=== PATIENT | female | born 1985 | race Caucasian/White ===

== ENCOUNTER → 2018-10-04 13:52 | Outpatient (CLI) | payer BC, SELFPAY ==
--- NOTE | 2018-10-04 14:00 | XR_ITS ---
XR shoulder RT min 2V HISTORY: ITS.REASON: RT SHOULDER PAIN,CERVICALGIA ORDERING PHYSICIAN: Angie Myers PATIENT AGE: 32 years Comparison: None FINDINGS: No fracture or dislocation. No lytic or blastic change. There is normal mineralization. The joint spaces are well-preserved. No significant degenerative/arthritic changes. No erosive changes evident. IMPRESSION: Negative, no acute finding
--- NOTE | 2018-10-04 14:00 | XR_ITS ---
EXAM: XR cervical spine 5V HISTORY: ITS.REASON: RT SHOULDER PAIN,CERVICALGIA ORDERING PHYSICIAN: Angie Myers PATIENT AGE: 32 years COMPARISON: None FINDINGS: Normal alignment. No fracture or dislocation. No lytic or blastic change. No significant degenerative change. The disc spaces are preserved. Surgical clips are present in the right neck. No evidence of cervical rib. The foramina are widely patent IMPRESSION: Negative cervical spine
== END ==
PROVIDERS: PCP Nurse Practitioner Family; Visit Provider Nurse Practitioner Family
DX: M25.511 Pain in right shoulder (principal); M54.2 Cervicalgia
CPT/HCPCS: 72050; 73030

== ENCOUNTER → 2018-10-17 15:46 | Outpatient (CLI) | payer BC, SELFPAY ==
--- NOTE | 2018-10-17 15:51 | MR_ITS ---
MR shoulder RT wo con HISTORY: Anterior shoulder pain. Pain with lifting. Weakness and numbness in the right upper extremity ITS.REASON: RIGHT ANTERIOR SHOULDER PAIN ORDERING PHYSICIAN: Angie Myers PATIENT AGE: 33 years Comparison: 10/04/2018 TECHNIQUE: Standard multiplanar multiecho sequences are performed without contrast. FINDINGS: There is mild downsloping of the distal aspect of the acromion with minimal hypertrophic change along the undersurface of the acromion with subacromial stenosis of 4 mm with some mild impingement upon the supraspinatus tendon. There is increased T2 signal within the supraspinatus tendon consistent with tendinopathy/tendinosis. A tear is not identified. The infraspinatus, subscapularis, and teres minor tendons are unremarkable. No labral tear is evident. No fracture or dislocation. No significant effusion. 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 No evidence of rotator cuff tear or glenoid labral tear.
== END ==
PROVIDERS: PCP Nurse Practitioner Family; Visit Provider Nurse Practitioner Family
DX: R20.2 Paresthesia of skin (principal)
CPT/HCPCS: 73221

== ENCOUNTER → 2018-12-26 07:41 | Outpatient (CLI) | payer BC, SELFPAY ==
--- NOTE | 2018-12-26 07:43 | MR_ITS ---
MR cervical spine wo con, MR 3-d myelogram/MRCP Ordering Physician: Con Mixon Patient Age: 33 years: Female HISTORY: ITS.REASON: NECK PAIN Right arm pain numbness and tingling past year. Headache neck pain. Lymph nodes taken out of neck. With turning head from [id number] TECHNIQUE: Sagittal STIR, T1, T2, axial T1 and T2. On 1.5T Siemens wide bore MRI. 3-D MR myelogram image set obtained & performed on MRI workstation. Additional sagittal thin section T2 weighted dataset obtained from this latter acquisition as well (---76 CPT) COMPARISON July:2007 5 view C-spine series FINDINGS Generous volume underlying osseous cervical canal. Cranial cervical junction appears satisfactory. The cervical vertebral bodies are intact with with normal normal alignment. . The disc spaces are well-maintained at all levels with no significant disc protrusion or but no significant spurring. C5/6 and C6/7 with only some mild central disc prominence but no significant protrusion. Small benign hemangioma seen at the posterior left T1 vertebral body. . 8 at superior aspect size.High signal on T1 Reflect small hemangioma and Facets appear satisfactory. No foramen widely patent all levels. No remarkable encroachment. 3-D MRI myelogram shows normal appearance to the thecal sac. No epidural indentation. Fairly symmetric exiting nerve root sleeves. A would noteSlightly dilated Nerve roots or some small small perineural cyst seen at the bilaterally at the lower C-spine, and upper T-spine. Not of significance but noted At right lobe of thyroid is larger than the left. Right lobe upper normal in borderline enlargement and with suspect small 6 mm nodule at the superior margin of right lobe. Apices the lungs clear. The region of brachial plexus grossly unremarkable bilaterally IMPRESSION: 1. Cervical spine intact with no significant findings.. No disc herniation or significant protrusion.No spurring or spondylosis. Normal alignment . 2. Incidental observations: ... A.... Small small perineural cysts or mild dilatation dilated nerve root sleeves noted at lower C-spine & uppermost T-spine. Minimal and nonspecific most notable at the left at C6/7. Incidental observation not felt to be of of significance clinically but noted.. B.... Generous Right lobe of thyroid. Borderline to slightly enlarged versus left . Right lobe contains probable small 6 mm nodule upper pole right lobe. ... Questionable 7 mm nodule at the posterior left lobe thyroid . Consider thyroid ultrasound
== END ==
PROVIDERS: PCP Family Medicine; Visit Provider Orthopaedic Surgery Adult Reconstructive Orthopaedic Surgery
DX: M54.2 Cervicalgia (principal)
CPT/HCPCS: 72141; 76376

== ENCOUNTER → 2019-01-15 12:56 | Outpatient (CLI) | payer BC, SELFPAY ==
--- NOTE | 2019-01-15 13:30 | US_ITS ---
US thyroid HISTORY: Thyroid nodule ITS.REASON: THYROID ORDERING PHYSICIAN: Angie Myers APRN PATIENT AGE: 33 years No previous exams are available for comparison. The isthmus has an unremarkable appearance. The right lobe is 4.3 x 1.8 x 1.3 cm. There is a 1.2 x 0.6 x 0.7 cm hypoechoic nodule with lobular contour fairly well-circumscribed in the upper pole on the right. A 3 mm hypoechoic nodule is present in the lower pole. The left lobe is 4.2 x 1.6 x 1.2 cm. There is a 1.3 x 0.8 cm isoechoic nodule in the lower pole on the left which is well-circumscribed. IMPRESSION: Mildly enlarged thyroid gland with bilateral solid-appearing nodules as described above. Recommend 6 month follow-up to confirm stability
== END ==
PROVIDERS: PCP Nurse Practitioner Family; Visit Provider Nurse Practitioner Family
DX: E04.1 Nontoxic single thyroid nodule (principal)
CPT/HCPCS: 76536

== ENCOUNTER → 2020-12-09 09:56 | Outpatient (CLI) | payer BC, SELFPAY ==
--- NOTE | 2020-12-09 10:14 | XR_ITS ---
PROCEDURE: XR CHEST 2V CLINICAL HISTORY: CHEST PAIN COMPARISON: CR CXR CHEST(2 VIEWS-NOT PORTABLE) from 03/22/2013 FINDINGS: The cardiomediastinal silhouette and pulmonary vascularity are within normal limits. The lungs are clear without infiltrates, suspicious nodules, or pleural effusions. No acute bony abnormalities. IMPRESSION: No acute findings. Dictated by: Kike Hancock MD 12/09/2020 18:09 Kike Hancock MD in [place] 12/09/2020 18:09
== END ==
PROVIDERS: PCP Nurse Practitioner Family; Visit Provider Nurse Practitioner Family
DX: R07.9 Chest pain, unspecified (principal)
CPT/HCPCS: 71046

== ENCOUNTER → 2020-12-17 13:02 | Outpatient (CLI) | payer BC, SELFPAY ==
--- NOTE | 2020-12-17 | CA_ITS ---
APPROVED REPORT Exam: Exercise Treadmill Technologist: Dejah Smith, Ht: 5 ft 4 in Wt: 157 lbs BSA: 1.76 m2 HR: 59 bpm BP: 136/64 mmHg Rhythm: NSR Medical History Medications: Gabapentin,,,,, Stress Test Details Test: Aris HR Resting HR: 83 bpm Max Heart Rate (APMHR): 183 bpm Max HR Achieved: 159 bpm Target HR (85% APMHR): 155 bpm % of APMHR: 86 Recovery HR: 90 bpm BP Resting BP: 136/64 mmHg Max BP: 152/79 mmHg Recovery BP: 135.0/75.0 mmHg ECG Clinical Exercise duration: 07:05 min Highest Stage Achieved: Exercise capacity: 10.1 METs Stress ECG Conclusion Max HR - 159: % of PM - 87%: Max B/P - 152/79: METs: 10.1 - test stopped due to shortness of breath. No chest pain - SOA during peak exercise - resolved in recovery. No ectopy. Less than 1.[address] depression. GXT only Good B/P response. no chest pain. No ectopy. Average exercise capacity. Less than 1.[address] depression. Normal exercise treadmill stress test. Test Summary RECOVERY 02:00 0.0 0.0 98 . 152/ 79 . . REST . . . . . . . Sitting REST 06:43 0.0 0.0 83 . 136/ 64 . . Stage 1 01:00 10.0 1.7 107 . . . . Stage 1 02:00 10.0 1.7 116 . . . . Stage 1 03:00 10.0 1.7 118 . 142/ 70 . . Stage 2 01:00 12.0 2.5 130 . . . . Stage 2 02:00 12.0 2.5 133 . . . . Stage 2 03:00 12.0 2.5 142 . 144/ 70 . . Stage 3 01:00 14.0 3.4 157 . . . . Stage 3 01:05 14.0 3.4 158 . . . Stop exercise at 07:05 RECOVERY 01:00 0.0 0.0 118 . . . . RECOVERY 02:00 0.0 0.0 98 . 152/ 79 . . RECOVERY 03:00 0.0 0.0 90 . 135/ 77 . . RECOVERY 03:51 0.0 0.0 93 . 135/ 75 . . Electronically signed by : Daryl Harvey, 12/17/2020 14:54:51
== END ==
PROVIDERS: PCP Nurse Practitioner Family; Visit Provider Nurse Practitioner Family
DX: R07.9 Chest pain, unspecified (principal)
CPT/HCPCS: 93017

== ENCOUNTER → 2021-06-10 20:35 | Outpatient (CLI) | payer BC, SELFPAY | PROVIDERS: Visit Provider Nurse Practitioner Family | DX: Z20.822 Contact with and (suspected) exposure to COVID-19 (principal); J02.9 Acute pharyngitis, unspecified | CPT/HCPCS: C9803; U0003; U0005 ==

== ENCOUNTER → 2021-09-10 09:32 | Outpatient (CLI) | payer BC, SELFPAY | PROVIDERS: PCP Family Medicine; Visit Provider Nurse Practitioner Family | DX: U07.1 COVID-19 (principal) | CPT/HCPCS: C9803; U0003; U0005 ==

== ENCOUNTER 2022-06-23 09:10 | Emergency (ER) | payer BC, SELFPAY ==
--- NOTE | 2022-06-23 09:53 | EXP.UTC ---
Discharge Plan Disposition Patient Disposition: Home, Self-Care Condition: Good Prescriptions Prescriptions: No Action No Known Home Medications Referrals Follow up/Referrals: Rochelle Rivas MD [Primary Care Provider] - See instructions Activity Restrictions/Add. Instructions Additional Instructions/Restrictions: *Monitor Temp, Over the counter Motrin or Tylenol as directed/as needed Tylenol every 4 hours and Motrin every 6 hours (as long as your family doctor has told you that you can take it) for fever or pain. and straight to ER if unable to lower temp less than 101.0 after medication given *Warm salt water gargles may help to soothe the throat *Throat Lozenges? *Warm fluids like tea with honey may help to soothe the throat? *Sleep elevated *Humidifier/Vaporizer Follow up IMMEDIATELY for new or worsening symptoms or no Noticeable improvement over the next 48-72 hours. 911 for difficulty breathing or swallowing You were tested for today for COVID19 your test result should be back in the next 24-48 hours, you may check your results on the [facility] Make sure to take your Vitamins Vit. C Vit D and Zinc if you can take them Clinical Impressions Clinical Impression: Exposure to COVID-19 virus Stand Alone Forms Stand Alone Forms: Work/School Release Instructions Patient Instructions: Coronavirus Disease 2019, Preventing the Spread of Coronavirus Discharge Instructions Discharge ED Provider: María Lazo [facility] [place] HPI General Stated complaint: at home covid pos 06/23, congestion Time Seen by Provider: 06/23/22 09:53 History of Present Illness Provider Complaint: Patient states that she took a home test for COVID at home and it showed positive States that she has been having body aches, and runny nose for the last couple of days and this morning she had a positive home test so she came in to get tested here to get a PCR test Related Data Home Medications Medication Instructions Recorded Confirmed No Known Home Medications 12/09/18 06/10/21 Allergies Allergy/AdvReac Type Severity Reaction Status Date / Time No Known Allergies Allergy Verified 06/10/21 16:38 [facility] Social History Smoking Status: Former smoker alcohol intake: never current occupational status: other Travel in the last 8 weeks: None ROS Obtained: Yes All systems reviewed & no additional complaints except as documented and Yes Systems reviewed as appropriate & no additional complaints except as documented Constitutional Constitutional: Reports system reviewed and no additional complaints, except as documented, Reports as per HPI, Reports body ache, Reports chills and Reports headache(s) Eyes Eyes: Reports system reviewed and no additional complaints, except as documented and Reports as per HPI ENT Ears, Nose, Mouth, and Throat: Reports system reviewed and no additional complaints, except as documented, Reports as per HPI, Reports headache(s), Reports nasal congestion and Reports nasal discharge Cardiovascular Cardiovascular: Reports system reviewed and no additional complaints, except as documented and Reports as per HPI Respiratory Respiratory: Reports system reviewed and no additional complaints, except as documented and Reports as per HPI Neurologic Neurologic: Reports headache(s) Physical Exam General General appearance: alert and in no apparent distress Expanded ENT Exam Nose exam: Absent sinus tenderness Throat exam: Present normal inspection; Absent tonsillar erythema or tonsillomegaly Respiratory Respiratory exam: Present normal lung sounds bilaterally; Absent respiratory distress or wheezes Cardiovascular Cardiovascular exam: Present regular rate, normal rhythm and normal heart sounds Abdominal Exam Abdominal exam: Present soft and normal bowel sounds; Absent distention or tenderness Neurological Exam Neurological exam: Present alert, oriented X3 and normal gait
[2022-06-23 09:58] VITALS: BP 126/71; PULSE 75; RESP 17; TEMP 36.8; O2SAT 100; BMI 25.4
[2022-06-23 10:09] VITALS: BP 126/71; PULSE 75; RESP 17; TEMP 36.8; O2SAT 100
== END 2022-06-23 10:10 | disposition home or self-care (01) ==
PROVIDERS: Emergency Provider Nurse Practitioner; PCP Family Medicine
DX: U07.1 COVID-19 (principal); M79.10 Myalgia, unspecified site; R51.9 Headache, unspecified; Z87.891 Personal history of nicotine dependence
CPT/HCPCS: 99213; C9803; G0463; U0003; U0005

== ENCOUNTER 2022-07-07 16:26 | Emergency (ER) | payer BC, SELFPAY ==
--- NOTE | 2022-07-07 16:33 | XR_ITS ---
PROCEDURE INFORMATION: Exam: XR Left Ankle Exam date and time: 07/07/2022 4:39 PM Age: 36 years old Clinical indication: Pain; Ankle; Left; Additional info: Fall, left lateral foot/ankle pain TECHNIQUE: Imaging protocol: Radiologic exam of the Left ankle. Views: 3 or more views. COMPARISON: CR XR FOOT LT MIN 3V 07/07/2022 4:38 PM FINDINGS: Bones/joints: Normal. Soft tissues: Normal. IMPRESSION: No acute findings.
--- NOTE | 2022-07-07 16:33 | XR_ITS ---
PROCEDURE INFORMATION: Exam: XR Left Foot Exam date and time: 07/07/2022 4:38 PM Age: 36 years old Clinical indication: Pain; Foot; Left; Additional info: Fall, left lateral foot/ankle pain TECHNIQUE: Imaging protocol: Radiologic exam of the Left foot. Views: 3 or more views. COMPARISON: No relevant prior studies available. FINDINGS: Bones/joints: Normal. Soft tissues: Normal. IMPRESSION: No acute findings.
[2022-07-07 17:35] VITALS: BP 148/82; PULSE 81; RESP 19; TEMP 37.2; O2SAT 99; BMI 26.5
--- NOTE | 2022-07-07 17:47 | EXP.UTC ---
Discharge Plan Disposition Patient Disposition: Home, Self-Care Condition: Good Prescriptions Prescriptions: No Action No Known Home Medications Referrals Follow up/Referrals: Rochelle Rivas MD [Primary Care Provider] - See instructions Activity Restrictions/Add. Instructions Additional Instructions/Restrictions: *weight bearing as tolerated *RICE, Rest the extremity, Ice 15-20 minutes 3-4 times daily, Compress- wear the osei wrap as discussed as much as possible to help reduce swelling and pain, Elevate the extremity when at rest *Osei wrap is for support and help control swelling, use it except in the shower. Be sure that is not to tight but not to loose either *Elevate when resting? *Ibuprofen 600-800mg every 6-8 hours as needed for pain an inflammation. If need something more can take Tylenol in between doses of Ibuprofen to help Clinical Impressions Clinical Impression: Ankle sprain Stand Alone Forms Stand Alone Forms: Work/School Release Instructions Patient Instructions: Ankle Sprain, DI for Ankle Sprain, How To Perform RICE (Rest, Ice, Compress, Elevate) Discharge ED Provider: María Lazo [facility] [place] HPI General Stated complaint: AO@07/07@1430 INJURED LEFT ANKLE Mode of Arrival: Ambulatory Source of Information: Patient Limitations: No Limitations Time Seen by Provider: 07/07/22 18:06 Description of Symptoms (Recalled from Triage Doc. by RN): pt comes in with c/o left ankle pain. pt fell while getting out of a recliner. 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 Related Data Home Medications Medication Instructions Recorded Confirmed No Known Home Medications 12/09/18 06/10/21 Allergies Allergy/AdvReac Type Severity Reaction Status Date / Time No Known Allergies Allergy Verified 07/07/22 17:38 Worker's Comp Is this a Worker's Comp case?: No PFSH PFSH Social History Smoking Status: Former smoker alcohol intake: never current occupational status: other Travel in the last 8 weeks: None ROS Obtained: Yes All systems reviewed & no additional complaints except as documented and Yes Systems reviewed as appropriate & no additional complaints except as documented Constitutional Constitutional: Reports system reviewed and no additional complaints, except as documented and Reports as per HPI Cardiovascular Cardiovascular: Reports system reviewed and no additional complaints, except as documented and Reports as per HPI Respiratory Respiratory: Reports system reviewed and no additional complaints, except as documented and Reports as per HPI Musculoskeletal Musculoskeletal: Reports system reviewed and no additional complaints, except as documented, Reports as per HPI and Reports other (pain in her left foot and ankle after twisting it earlier today) Physical Exam General General appearance: alert and in no apparent distress Respiratory Respiratory exam: Present normal lung sounds bilaterally; Absent respiratory distress or wheezes Cardiovascular Cardiovascular exam: Present regular rate, normal rhythm and normal heart sounds Expanded Lower Extremity Exam Left: Ankle exam: Present tenderness and swelling; Absent abrasion, laceration, ecchymosis, deformity or erythema Foot/toe exam: Present tenderness and swelling; Absent ecchymosis, deformity, dislocation or erythema Neurol
[2022-07-07 18:22] VITALS: BP 148/82; PULSE 81; RESP 19; TEMP 37.2
== END 2022-07-07 18:24 | disposition home or self-care (01) ==
PROVIDERS: Emergency Provider Nurse Practitioner; PCP Family Medicine
DX: M25.572 Pain in left ankle and joints of left foot (principal); S93.402A Sprain of unspecified ligament of left ankle, initial encounter; W07.XXXA Fall from chair, initial encounter
CPT/HCPCS: 73610; 73630; 99212; G0463

== ENCOUNTER 2024-11-11 08:57 | Outpatient (CLI) | payer OTHER, SELFPAY ==
--- NOTE | 2024-11-11 09:00 | US_ITS ---
FINAL REPORT TECHNIQUE: Sonographic images of the right upper quadrant were obtained. CLINICAL HISTORY: EPIGASTRIC PAIN FINDINGS: PANCREAS: Unremarkable. LIVER: Homogeneous. No focal hepatic lesion. No intrahepatic biliary ductal dilatation. The portal vein is patent with normal directional flow. GALLBLADDER: No gallstones. No gallbladder wall thickening or pericholecystic fluid. COMMON DUCT: 2 mm. Normal for age. RIGHT KIDNEY: The right kidney measures 14.3 cm. There is no hydronephrosis, mass, or stone. FREE FLUID: None. IMPRESSION: Unremarkable ultrasound of the right upper quadrant. Reviewed, Interpreted and Dictated by Yamilka Ramirez MD Transcribed by Amna Pierre Authenticated and [facility]
== END 2024-11-11 23:59 | disposition home or self-care (01) ==
LOC: RAD 08:58
PROVIDERS: PCP Family Medicine; Visit Provider Nurse Practitioner
DX: R10.13 Epigastric pain (principal)
CPT/HCPCS: 76705

== ENCOUNTER 2025-03-06 09:56 | Outpatient (CLI) | payer OTHER, SELFPAY ==
[2025-03-06 13:37] LABS: Basophils % 0.6 % (0.1-2.0); Eosinophils # 0.1 Kmm3 (0.0-0.4); Eosinophils % 2.1 % (0.1-12.0); Hematocrit 40.1 % (37.0-47.0); Hemoglobin 12.8 g/dL (12.2-16.2); Immature Granulocytes # 0.01 10^3uL; Immature Granulocytes % 0.2 %; Lymphocytes # 1.6 K/mm3 (0.7-4.5); Lymphocytes % 29.1 % (10-50); Mean Corpuscular HGB Conc 31.9 g/dL (31.8-35.4); Mean Corpuscular Hemoglobin 29.1 pg (27.0-31.2); Mean Corpuscular Volume 91.1 fl (81-99); Monocytes # 0.5 K/mm3 (0.1-1.0); Monocytes % 8.8 % (1.7-9.3); Neutrophils # 3.2 K/mm3 (1.8-7.8); Neutrophils % 59.2 % (37.0-80.0); Nucleated Red Blood Cells # 0 10^3/uL; Nucleated Red Blood Cells % 0 %; Platelet Count 96 K/mm3 (142-424); Red Cell Distribution Width 13.2 % (11.5-17.5); Red Cell Distribution Width-SD 44.9 fL; White Blood Count 5.4 K/mm3 (4.8-10.8)
[2025-03-06 14:27] LABS: Alanine Aminotransferase 14 U/L (12-78); Albumin Level 4.2 g/dl (3.5-5.0); Albumin/Globulin Ratio 1.6 (1.1-1.8); Alkaline Phosphatase 54 U/L (38-126); Anion Gap 7.8 mEq/L (5-15); Aspartate Amino Transferase 28 U/L (14-36); Bilirubin,Total 0.4 mg/dl (0.2-1.3); Blood Urea Nitrogen 11 mg/dl (7-17); Calcium 8.8 mg/dl (8.4-10.2); Carbon Dioxide 27 mmol/L (22.0-30.0); Chloride 106 mmol/L (98-107); Chol/HDL Ratio 3.4 (1-3.5); Cholesterol 176 mg/dl (140-200); Estimated Glomerular Filt Rate 79 ml/min (>60); GFR (African American) 96 ML/MIN (>60); Globulin 2.6 g/dL (1.3-3.2); Glucose 75 mg/dl (74-100); HDL Cholesterol 52 mg/dl (40-60); Potassium 4.8 mmoL/L (3.5-5.1); Sodium 136 mmol/L (136-145); Total Protein,Serum 6.8 g/dl (6.3-8.2); Triglycerides 70 mg/dl (30-150); VLDL Cholesterol 14 mg/dL (0-40)
[2025-03-06 14:37] LABS: Direct LDL Cholesterol 87.73 mg/dL (100-129)
[2025-03-06 14:57] LABS: Thyroid Stimulating Hormone 0.72 uIU/mL (0.465-4.68)
--- OUTSIDE RECORDS SUMMARY | 2025-03-06 22:17 | XMS_ITS | Clinical Summary ---
Author Organization [facility] Address [address] [place] [address] Phone Care Team Providers Care Construction Management Assistant Name Role Phone Unavailable Primary Care Provider Unavailabl e Social History Tobacco Use Types Packs/Day Years Used Date Smoking Tobacco: Never Assessed Comments Unknown Sex and Gender Information Value Date Recorded Sex Assigned at Not on file Legal Sex Female 4:05 PM EDT Gender Identity Not on file Sexual Orientation Not on file Plan of Treatment Health Maintenance Due Date Last Done Comments Annual Wellness Exam 1986 DTaP/TDaP/Td (1 - Tdap) 2002 Hepatitis B Vaccine (1 of 3 - 19+ 3-dose series) 2002 Cervical Cancer Screening 2004 Pap Smear 2004 HPV/Pap Cotest 2013 Breast Cancer Screening 2023 COVID-19 Vaccine ( - 2023-2 5 season) 2024 Influenza Vaccine (Season Ended) 2025 Meningococcal B Vaccine Aged Out No l onger eligible based on patient's age to complete this topic Pneumococcal Vaccine 0-49 Aged Out No longer eligible based on patient's age to complete this topic Insurance ANTHEM PPO ANTHEM PPO
[2025-03-07 08:21] LABS: Estradiol 42.1 pg/mL (.); LH 5.1 mIU/mL (.); Progesterone 0.2 ng/mL (.); Testosterone,Total 14 ng/dL (4-50)
[2025-03-07 11:11] LABS: FSH 10.3 mIU/mL (.)
[2025-03-11 03:36] LABS: Testosterone,Free 0.8 pg/mL (0.0-4.2)
== END 2025-03-06 23:59 | disposition home or self-care (01) ==
LOC: LAB.DROPOF 22:15
PROVIDERS: PCP Nurse Practitioner Family; Visit Provider Nurse Practitioner Family
DX: Z13.220 Encounter for screening for lipoid disorders (principal); R23.2 Flushing; D69.6 Thrombocytopenia, unspecified
CPT/HCPCS: 80053; 80061; 82670; 83001; 83002; 84144; 84402; 84403; 84443; 85025